=== PATIENT | female | born 1990 ===

== ENCOUNTER 2018-06-02 13:10 | Inpatient (IN) | payer BC ==
[2018-06-02 13:25] VITALS: BMI 21.4
[2018-06-02] MEDS ORDERED: Oxytocin 30 UNIT 30 UNITS/500 ML BAG IV ONE ×4 (14:07→23:22)
[2018-06-02] MEDS ORDERED: Lactated Ringer's 1,000 ML IV ONE (14:07)
[2018-06-02 15:11] LABS: BASO % 0.4 % (0.0-2.0); EOS % 0.2 % (0.0-4.0); HEMOGLOBIN 12.9 g/dL (11.0-16.0); LYMPH # 1.6 K/uL (1.0-4.3); LYMPH % 16.9 % (20.0-40.0); MEAN CELL VOLUME 94.5 fL (81.0-99.0); MEAN CORPUSCULAR HEMOGLOBIN 31.6 pg (27.0-31.0); MEAN CORPUSCULAR HGB CONC 33.4 g/dL (33.0-37.0); MEAN PLATELET VOLUME 9.1 fL (7.2-11.7); MONO % 10.3 % (0.0-10.0); NEUT % 72.2 % (50.0-75.0); RBC 4.08 Mil/uL (3.80-5.20); RED CELL DISTRIBUTION WIDTH 14.5 % (11.5-14.5); WHITE BLOOD COUNT 9.7 K/uL (4.8-10.8)
[2018-06-02 15:15] LABS: SQUAMOUS EPITHIAL 5 /hpf (0-5); URINE AMORPHOUS SEDIMENT RARE /ul (<OCC); URINE BACTERIA MANY (<OCC); URINE BILIRUBIN NEGATIVE (NEGATIVE); URINE BLOOD 1+ (NEGATIVE); URINE CLARITY Hazy (Clear); URINE COLOR Yellow (YELLOW); URINE GLUCOSE (UA) NORMAL (Normal); URINE LEUKOCYTE ESTERASE 2+ Leu/uL (Negative); URINE PROTEIN NEGATIVE (NEGATIVE); URINE UROBILINOGEN NORMAL mg/dL (0.2-1.0)
[2018-06-02] MEDS ORDERED: Lactated Ringer's 1,000 ML IV SCH (15:15)
[2018-06-02 15:22] LABS: ALB/GLOB RATIO 1.1 (1.0-2.1); ALBUMIN 3.6 g/dL (3.5-5.0); ALT/SGPT 33 U/L (9-52); AST/SGOT 28 U/L (14-36); BLOOD UREA NITROGEN 9 mg/dL (7-17); CALCIUM 9.6 mg/dl (8.6-10.4); GFR NON-AFRICAN AMERICAN > 60; URIC ACID 4.7 mg/dL (2.2-7.5)
[2018-06-02 15:27] LABS: INR 0.8
[2018-06-02 15:30] LABS: PROTHROMBIN TIME 9.2 SECONDS (9.7-12.2)
--- NOTE | 2018-06-02 16:48 | OBHP ---
Datetime: 06/02/2018 14:00 IP Adm Impression: Term, intrauterine IP Admit Plan: Admit to unit IP Admit Plan Other: Cervical ripening Admit Comment, IP Provider: This is a private patient of Dr. Italo Alanis 27 year old presents at 37.6 weeks gestation dated via LMP on 09/11/17 with KARY of 06/18/18 . Patient was sent by her Ob-bulb assembler, Dr. Alanis, for induction of labor due to cholestasis of . Patient reports adequate movement. She denies vaginal bleeding, contractions and loss of fluid . 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 Denies hx of STDs. Reports history of small uterine fibroid. Denies family history of breast, endo metrial or ovarian cancers. Sexually active in . PMHx: Anemia, vitamin D insufficiency, cholestasis of PSHx: denies Meds: PNV, iron supplement daily, vitamin D 10,000 units weekly, ursodeoxycholic acid 500mg TID Allergies: Azithromycin, rash Family Hx: Mother-52 yo, living, pre-diabetes; Father 54 yo, living, asthma. Social: Denies tobacco, alcohol and drugs during . 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 She is for 2 years. labs: Rubella immune 11/03/17 GC negative 11/03/17 HIV negative 11/03/17 RPR negative 11/03/17 Hep B negative 11/03/17 GBS negative 05/02/18 Assessment and Plan: 27 year old presents at 37.6 weeks gestation dated via LMP on 09/11/17 with KARY of 06/18/18 for induction of labor secondary to cholestasis of . -Admit to unit -Continuous monitoring -Admission labs -LDH, Uric acid, coags -NPO except ice chips -Cervidil -LR 1L bolus, 125 mls/hr -Anticipate vaginal delivery Case discussed with Dr. Burton. Steph Wise, PGY-1 Arrending Note; Patient seen, evaluated and examined by me; I agree with the above as documented. Category 1 tracing. GBS (-). NB: patient also denies headaches, BV, epigastric or RUQ pain. Case D/W Dr. Alanis - will proceed with cervical ripening. This was discussed with patient in charito tion to possiblility of pitocin for augmentation. Pain management options also discussed. Patient is receptive to epidural. Patient is clinically stable. Plan - as above. Addendum: cervidil placed in posterior vaginal vault without incident at 150 hours Pelvic Type - PN: Adequate Extremities - PN: Normal Abdomen - PN: Normal Back - PN: Normal Breast - PN: Not Done Lungs - PN: Normal Heart - PN: Normal Neurologic - PN: Normal HEENT - PN: Normal General - PN: Normal FHR - Baseline A Provider: 130 Contraction Comments Provider: no Comments, ACOG Physical Exam: Abdomen: Gravid, non-tender. Uterine fundus at 36cm Gestation - Est Wks by US: 37.6 EGA AdmitDate IP: 37.5 Vital Signs Provider: Reviewed Vital Signs Provider Details: tachycardic IP Indication for Induction: Other IP Indication for Induction Oth: Cholestasis of IP Chief Complaint: Scheduled induction of labor NICHD Variability Prov Fetus A: Moderate 6-25bpm NICHD Accel Fetus A IP Provider: 15X15 FHR Category Provider Fetus A: Category I NICHD Decel Fetus A IP Provider: None Dilatation, Provider: 3-4 Effacement, Provider: 50 Station, Provider: -3 Genitourinary Exam: Normal
[2018-06-02] MEDS ORDERED: Bupivacaine HCl/FentaNYL Cit 100 ML EPI ONE (19:34)
--- NOTE | 2018-06-02 19:51 | OBPN ---
Datetime: 06/02/2018 19:33 IP Progress Impression: Normal progression of labor IP Procedures: Sterile Vag Exam IP Progress Plan: Continue present management; Cervical Ripening; Anesthesia consult Membranes, Provider: Intact Contraction Comments Provider: irregular FHR - Baseline A Provider: 150 Gestation - Est Wks by US: 37w 5d Presentation-Admit: Vertex IP Progress Note Comment: Patient examined at 1900 hours: received in LDR#3, on right lateral positi on. Anxious re: pain and pain management options ... "I can't take this pain" Cervical exam: as above. Cervidil remains in situ Assessment: 27 y.o. P0010, 37w 5d, cholestasis in - IOL; cervidil in situ. BPs and labor atory values all wnl/negative. D/W patient pros and cons of IV analgesic versus epidural. Patient's q uestions and concerns were addressed and answered. Darrell has decided to proceed with epidural. Poornima marquez 1 tracing. Darrell is clinically stable. Plan: 1) Epidural 2) Continue current management 3) Anticipate vaginal delivery Assessment: 27 y.o. P0010 Vital Signs Provider: Reviewed NICHD Accel Fetus A IP Provider: 15X15 FHR Category Provider Fetus A: Category I NICHD Variability Prov Fetus A: Moderate 6-25bpm Dilatation, Provider: 5 Effacement, Provider: 50 Station, Provider: -3 NICHD Decel Fetus A IP Provider: None Datetime: 06/02/2018 14:00 Vital Signs Provider Details: tachycardic
--- NOTE | 2018-06-02 19:59 | OBADHP ---
Datetime: 06/02/2018 19:33 Presentation-Admit: Vertex FHR - Baseline A Provider: 150 Membranes, Provider: Intact Contraction Comments Provider: irregular Gestation - Est Wks by US: 37w 5d Vital Signs Provider: Reviewed NICHD Variability Prov Fetus A: Moderate 6-25bpm NICHD Accel Fetus A IP Provider: [id number] FHR Category Provider Fetus A: Category I NICHD Decel Fetus A IP Provider: None Dilatation, Provider: 5 Effacement, Provider: 50 Station, Provider: -3 Datetime: 06/02/2018 14:00 IP Hx Assessment: The History has been Reviewed and is Current EGA AdmitDate IP: 37.5 IP Adm Impression: Term, intrauterine ; Intact Membranes
--- NOTE | 2018-06-02 20:14 | OBPN ---
Datetime: 06/02/2018 20:07 IP Progress Impression: Normal progression of labor IP Procedures: Artificial ROM; Sterile Vag Exam Contraction Comments Provider: irrg FHR - Baseline A Provider: 140 IP Progress Note Comment: pt was examined at bed side ve /70/-2 arom clear plan start pitocin cont hailey and efm anticipate Vital Signs Provider: Reviewed; Within Normal Limits NICHD Accel Fetus A IP Provider: 15X15 FHR Category Provider Fetus A: Category I NICHD Variability Prov Fetus A: Moderate 6-25bpm Dilatation, Provider: 5 Effacement, Provider: 70 Station, Provider: -2
[2018-06-03] MEDS ORDERED: Oxycodone/Acetaminophen 5/325 mg Tab PO PRN ×2 (01:06)
--- NOTE | 2018-06-03 01:06 | OBDS ---
MATERNAL INFORMATION Maternal Complications: Other Other Maternal Complications: Increased Bile Acid, Cholestsasis of Provider Comments: dr elena prvate baby de;ivrd in [place] end clean 9/9 cord educed LABOR SUMMARY EDC: 06/18/2018 00:00 No. Babies in Womb: 0 Attempted: No Labor Anesthesia: Epidural LABOR INFORMATION Reason for Induction: Other Reason for Induction Other: cholestasis of Cervical Ripening Agents: cervidil removed Other Ripening Agents: cervidil 10mg inserted vaginally by Dr. Burton Group B Beta Strep: Negative Steroids Given: None Reason Steroids Not Administered: Not Applicable MEMBRANES Membranes Rupture Method: Artificial Rupture of Membranes: 06/02/2018 20:02 Amniotic Fluid Color: Clear Amniotic Fluid Amount: Small Amniotic Fluid Odor: Normal VAGINAL DELIVERY Episiotomy: Right Mediolateral Laceration Extension: N/A Laceration Type: None Laceration Repair Note: repired with 2 vry Sponge Count Correct: Yes Sharps Count Correct: Yes BABY A INFORMATION Born in Route : No : N/A PRESENTATION/POSITION BABY A Presentation: Cephalic Vertex Position: Left Occipital Anterior Breech Presentation: N/A INFORMATION BABY A Gestational Age at Delivery: 37.5 Gestational Status: Term Sex: Female IDENTIFICATION/MEDS BABY A ID Band Number: [id number] Sensor Number: [id number] CORD INFORMATION BABY A Nuchal Cord : Around Neck x1, Loose
[2018-06-03] MEDS ORDERED: Tdap Vaccine 0.5 ml Vial (10-64 yrs) IM ONE (01:08)
[2018-06-03] MEDS: Benzocaine/Menthol 20%-0.5% Topical Spray (60 ml) TOP PRN (03:43)
[2018-06-03 07:21] LABS: BASO % 0.2 % (0.0-2.0); HEMOGLOBIN 12.1 g/dL (11.0-16.0); LYMPH % 9.3 % (20.0-40.0); MEAN CELL VOLUME 94.9 fL (81.0-99.0); MEAN CORPUSCULAR HEMOGLOBIN 31.8 pg (27.0-31.0); MEAN CORPUSCULAR HGB CONC 33.5 g/dL (33.0-37.0); MONO # 1.5 K/uL (0.0-0.8); NEUT # 17.9 K/uL (1.8-7.0); NEUT % 83.5 % (50.0-75.0); PLATELET COUNT 249 K/uL (130-400); RBC 3.82 Mil/uL (3.80-5.20); RED CELL DISTRIBUTION WIDTH 14.8 % (11.5-14.5)
[2018-06-03 07:24] LABS: WHITE BLOOD COUNT 21.4 K/uL (4.8-10.8)
[2018-06-03 08:30] LABS: LYMPHOCYTE 12 % (20-40); MONOCYTE 5 % (0-10); NEUTROPHIL 83 % (50-75); PLATELET ESTIMATE NORMAL (NORMAL); TOTAL CELLS COUNTED 100
[2018-06-03 08:31] LABS: LARGE PLATELETS PRESENT
[2018-06-04 01:05] VITALS: RESP 20
[2018-06-04 08:53] LABS: BASO % 0.3 % (0.0-2.0); EOS # 0.1 K/uL (0.0-0.7); EOS % 0.5 % (0.0-4.0); HEMOGLOBIN 11.7 g/dL (11.0-16.0); LYMPH # 3.4 K/uL (1.0-4.3); LYMPH % 21.6 % (20.0-40.0); MEAN CELL VOLUME 95.3 fL (81.0-99.0); MEAN CORPUSCULAR HEMOGLOBIN 31.3 pg (27.0-31.0); MEAN CORPUSCULAR HGB CONC 32.9 g/dL (33.0-37.0); MEAN PLATELET VOLUME 9.1 fL (7.2-11.7); MONO # 1.3 K/uL (0.0-0.8); MONO % 8.1 % (0.0-10.0); NEUT # 11.1 K/uL (1.8-7.0); NEUT % 69.5 % (50.0-75.0); NRBC % 0.1 % (0.0-2.0); RBC 3.73 Mil/uL (3.80-5.20); RED CELL DISTRIBUTION WIDTH 14.9 % (11.5-14.5); WHITE BLOOD COUNT 15.9 K/uL (4.8-10.8)
[2018-06-04] MEDS ORDERED: Tdap Vaccine 0.5 ml Vial (10-64 yrs) IM ONE (10:00)
[2018-06-04] MEDS: Benzocaine/Menthol 20%-0.5% Topical Spray (60 ml) TOP PRN (10:20)
[2018-06-05 09:39] VITALS: BP 110/73; PULSE 98; TEMP 97.4; O2SAT 99
[2018-06-05] MEDS: Benzocaine/Menthol 20%-0.5% Topical Spray (60 ml) TOP PRN (10:04)
[2018-06-05] MEDS ORDERED: Influenza Vaccine 60 MCG/0.5 ML SYR (3 yr & up) IM ONE (11:05)
--- NOTE | 2018-06-05 12:51 | OBPPN ---
Datetime: 06/05/2018 12:26 PP Pain Prov: Within normal limits PP Nausea Prov: Denies PP Breasts Prov: Not Done PP Heart Prov: Normal PP Lungs Prov: Normal PP Abdomen/Uterus Prov: Normal PP Lochia Prov: Normal PP Vulva/Perineum Prov: Normal PP CVA Tenderness Prov: Normal PP Extremities Prov: Normal PP C/S Incision Prov: Not Applicable PP Progress Prov: Normal PP Comments Phys Exam Prov: Fundus firm and non-tender and below Umbilicus PP Impression Prov: Normal progression PP Plan Prov: Discharge PP Progress Note Prov: PPD # 2 Stable and Satisfactory condition and recovery Discharge instructions reviewed with patient and verbalized understanding Will F/Up with Dr. Alanis in 6 weeks Continue Pelvic rest x 6-8 weeks IP PP Procedures: None Vital Signs Provider PP: Reviewed; Within Normal Limits Datetime: 06/04/2018 16:02 PP Flatus Prov: Yes PP BM Prov: No
== END 2018-06-05 13:00 | disposition home or self-care (01) | DRG 805 ==
LOC: C.EROB 13:10 → C.4D 14:07 → C.4M 06-03 03:15
PROVIDERS: ADMIT Obstetrics & Gynecology; ATTEND Obstetrics & Gynecology
PROC: 3E0P7VZ Introduction of Hormone into Female Reproductive, Via Natural or Artificial Opening (ICD-10-PCS; 2018-06-02)
PROC: 10907ZC Drainage of Amniotic Fluid, Therapeutic from Products of Conception, Via Natural or Artificial Opening (ICD-10-PCS; 2018-06-02)
PROC: 10E0XZZ Delivery of Products of Conception, External Approach (ICD-10-PCS; principal; 2018-06-03)
PROC: 0W8NXZZ Division of Female Perineum, External Approach (ICD-10-PCS; 2018-06-03)
DX: O26.62 Liver and biliary tract disorders in childbirth (principal); K83.1 Obstruction of bile duct; O69.81X0 Labor and delivery complicated by cord around neck, without compression, not applicable or unspecified; Z3A.37 37 weeks gestation of pregnancy; Z23 Encounter for immunization; Z37.0 Single live birth